=== PATIENT | female | born 1970 | race Caucasian/White ===

== ENCOUNTER 2018-10-23 08:54 | Emergency (ER) | payer BC, OTHER ==
[~2018-10-23] VITALS: Ht 167.6 cm; Wt 102.1 kg
[2018-10-23] MEDS ORDERED: NS IV 1000 ML 1,000 ML IV STA ×2 (09:07→10:18)
[2018-10-23] MEDS ORDERED: ONDANSETRON 4 MG/2 ML (SDV) Z0FRAN IVP ONE (09:15)
--- NOTE | 2018-10-23 09:18 | ED Abdominal Pain ---
General Chief Complaint: Abdominal/GI Problems Stated Complaint: R SIDE ABD PAIN Source of Information: Patient Exam Limitations: No Limitations History of Present Illness Date Seen by Provider: Oct 23, 2018 Time Seen by Provider: 09:00 Initial Comments Here with right lower quadrant abdominal pain onset this morning. Noted that she had nausea, vomiting and diarrhea since Monday night (3 days ago). She has not been unable to eat or drink well at all during that time. She was unable to tolerate water crackers this morning. Seen by her primary care doctor who sent her here for further evaluation. Denies current fevers. Previous hysterectomy and oophorectomy. Timing/Duration: 2-3 Days Severity/Quality: Moderate, Aching, Cramping Location: RLQ Radiation: Back Activities at Onset: None Modifying Factors: Worsens With Eating; Improves With Resting Associated Symptoms: Back Pain; No Chest Pain, No Fever/Chills; Nausea/Vomiting ; No Shortness of Air, No Weakness Allergies and Home Medications Allergies Coded Allergies: No Known Drug Allergies (Unverified , 10/23/18) Home Medications No Active Prescriptions or Reported Meds Patient Home Medication List Home Medication List Reviewed: Yes Review of Systems Review of Systems Constitutional: see HPI; No chills, No fever EENTM: No Symptoms Reported Respiratory: No Symptoms Reported Cardiovascular: No Symptoms Reported Gastrointestinal: Abdominal Pain, Diarrhea, Nausea, Vomiting Genitourinary: Other (decreased output) Musculoskeletal: no symptoms reported Skin: no symptoms reported All Other Systems Reviewed Negative Unless Noted: Yes Past Jyxhjyu-Jttydv-Aqtren Hx Past Med/Social Hx: Reviewed Nursing Past Med/Soc Hx Patient Social History Alcohol Use: Denies Use Recreational Drug Use: No Smoking Status: Never a Smoker Past Medical History Surgeries: Yes Gallbladder, Hysterectomy Respiratory: No Cardiac: No Neurological: No : No Genitourinary: No Gastrointestinal: No Musculoskeletal: No Endocrine: No Family Medical History Reviewed Nursing Family Hx No Pertinent Family Hx Physical Exam Vital Signs Vital Signs - First Documented 10/23/18 08:54 Temp 97.9 Pulse 102 Resp 16 B/P (MAP) 121/85 (97) Pulse Ox 99 O2 Delivery Room Air Capillary Refill : Height/Weight/BMI Height: '" Weight: lbs. oz. kg; BMI Method: General Appearance: WD/WN, no apparent distress HEENT: PERRL/EOMI, pharynx normal Neck: full range of motion, supple Respiratory: lungs clear, normal breath sounds Cardiovascular: no murmur, tachycardia Peripheral Pulses: 2+ Dorsalis Pedis (R), 2+ Left Dors-Pedis (L), 2+ Radial Pulses (R), 2+ Radial Pulses (L) Gastrointestinal: non tender, soft Extremities: non-tender, normal inspection Back: normal inspection, no CVA tenderness, no vertebral tenderness Neurologic/Psychiatric: no motor/sensory deficits, alert Skin: normal color, warm/dry Progress/Results/Core Measures Results/Orders Lab Results Laboratory Tests Test 10/23/18 09:15 10/23/18 11:28 Range/Units White Blood Count 7.0 4.3-11.0 10^3/uL Red Blood Count 5.62 4.35-5.85 10^6/uL Hemoglobin 16.6 H 11.5-16.0 G/DL Hematocrit 47 35-52 % Mean Corpuscular Volume 84 80-99 FL Mean Corpuscular Hemoglobin 30 25-34 PG Mean Corpuscular Hemoglobin Concent 35 32-36 G/DL Red Cell Distribution Width 13.7 10.0-14.5 % Platelet Count 362 130-400 10^3/uL Mean Platelet Volume 9.0 7.4-10.4 FL Neutrophils (%) (Auto) 64 42-75 % Lymphocytes (%) (Auto) 21 12-44 % Monocytes (%) (Auto) 14 H 0-12 % Eosinophils (%) (Auto) 0 0-10 % Basophils (%) (Auto) 0 0-10 % Neutrophils # (Auto) 4.5 1.8-7.8 X 10^3 Lymphocytes # (Auto) 1.5 1.0-4.0 X 10^3 Monocytes # (Auto) 1.0 0.0-1.0 X 10^3 Eosinophils # (Auto) 0.0 0.0-0.3 10^3/uL Basophils # (Auto) 0.0 0.0-0.1 10^3/uL Sodium Level 139 135-145 MMOL/L Potassium Level 3.3 L 3.6-5.0 MMOL/L Chloride Level 104 98-107 MMOL/L Carbon Dioxide Level 16 L 21-32 MMOL/L Anion Gap 19 H 5-14 MMOL/L Blood Urea Nitrogen 28 H 7-18 MG/DL Creatinine 1.38 H 0.60-1.30 MG/DL Estimat Glomerular Filtration Rate 41 BUN/Creatinine Ratio 20 Glucose Level 102 70-105 MG/DL Calcium Level 9.8 8.5-10.1 MG/DL Corrected Calcium 8.5-10.1 MG/DL Total Bilirubin 0.6 0.1-1.0 MG/DL Aspartate Amino Transf (AST/SGOT) 33 5-34 U/L Alanine Aminotransferase (ALT/SGPT) 42 0-55 U/L Alkaline Phosphatase 115 40-136 U/L C-Reactive Protein High Sensitivity 1.79 H 0.00-0.50 MG/DL Total Protein 7.9 6.4-8.2 GM/DL Albumin 5.1 H 3.2-4.5 GM/DL Urine Color YELLOW Urine Clarity CLEAR Urine pH 5 5-9 Urine Specific [place] 1.020 1.016-1.022 Urine Protein 2+ H NEGATIVE Urine Glucose (UA) NEGATIVE NEGATIVE Urine Ketones 4+ H NEGATIVE Urine Nitrite NEGATIVE NEGATIVE Urine Bilirubin NEGATIVE NEGATIVE Urine Urobilinogen NORMAL NORMAL MG/DL Urine Leukocyte Esterase 1+ H NEGATIVE Urine RBC (Auto) 1+ H NEGATIVE Urine RBC 0-2 /HPF Urine WBC 5-10 H /HPF Urine Squamous Epithelial Cells 25-50 H /HPF Urine Crystals NONE /LPF Urine Bacteria FEW H /HPF Urine Casts PRESENT /LPF Urine Hyaline Casts 2-5 H /LPF Urine Granular Casts RARE /LPF Urine Mucus NEGATIVE /LPF Urine Culture Indicated YES My Orders Orders - SANDRA BOOTHE MD Cbc With Automated Diff (10/23/18 09:07) Comprehensive Metabolic Panel (10/23/18 09:07) Hs C Reactive Protein (10/23/18 09:07) Ua Culture If Indicated (10/23/18 09:07) Ondansetron Injection (Zofran Injectio (10/23/18 09:15) Ns Iv 1000 Ml (Sodium Chloride 0.9%) (10/23/18 09:07) Saline Lock/Iv-Start (10/23/18 09:07) Ns Iv 1000 Ml (Sodium Chloride 0.9%) (10/23/18 10:18) Urine Culture (10/23/18 11:28) Ct Abd/Pelv W (Appendicitis) (10/23/18 12:05) Iohexol Injection (Omnipaque 350 Mg/Ml 1 (10/23/18 12:15) Contrast Received (Contrast Received) (10/23/18 12:15) Sodium Chloride Flush (Catheter Flush Sy (10/23/18 12:15) Ns (Ivpb) (Sodium Chloride 0.9% Ivpb Bag (10/23/18 12:15) Medications Given in ED Current Medications Medications Dose Ordered Sig/Vincenzo Route Start Time Stop Time Status Last Admin Dose Admin Iohexol 100 ml ONCE ONCE IV 10/23/18 12:15 10/23/18 12:16 DC 10/23/18 12:30 60 ML Ondansetron HCl 4 mg ONCE ONCE IVP 10/23/18 09:15 10/23/18 09:16 DC 10/23/18 09:28 4 MG Sodium Chloride 10 ml NEEDED PRN IV 10/23/18 12:15 10/23/18 12:31 10 ML Sodium Chloride 100 ml ONCE ONCE IV 10/23/18 12:15 10/23/18 12:16 DC 10/23/18 12:30 80 ML Vital Signs/I&O 10/23/18 08:54 Temp 97.9 Pulse 102 Resp 16 B/P (MAP) 121/85 (97) Pulse Ox 99 O2 Delivery Room Air Progress Progress Note : Progress Note Seen and evaluated. IV, labs, UA, normal saline 1 L bolus and Zofran 4 mg IV. Patient declined pain medicine. Monitor patient. Repeat normal saline 1 L boluses patient is unable to urinate. Monitor patient. 1200: UA obtained. We will get CT abdomen pelvis to rule out appendicitis as she has right lower quadrant pain and no indication of kidney stone currently. 1320: CT does not show appendicitis but does show multiple fluid-filled loops of small bowel. Likely enteritis. UA shows contamination and cultures are pending. We will hold further antibiotics pending cultures as this is this likely contamination. By mouth challenge done and past. Discharged home with return precautions. Patient verbalize understanding instructions and agreement with plan. Diagnostic Imaging Diagonstic Imaging: CT Plain Films/CT/US/NM/MRI: abdomen, pelvis Comments NAME: KRISTIN CALZADA [facility] REC#: [id number] PT STATUS: REG ER : 1970 PHYSICIAN: SANDRA BOOTHE MD ADMIT DATE: 10/23/18/ER Signed Date of Exam: 10/23/18 CT ABD/PELV W (APPENDICITIS) PROCEDURE: CT abdomen and pelvis with contrast, rule out appendicitis. TECHNIQUE: Multiple contiguous axial images were obtained through the abdomen and pelvis after the administration of intravenous contrast. INDICATION: Right lower quadrant pain. COMPARISON: None available. FINDINGS: Lower chest: The lung bases are clear. No pericardial or pleural effusion. Peritoneum: No free intraperitoneal air or fluid. Liver and biliary system: Diffuse hypoattenuation liver is indicative of hepatic steatosis. No focal hepatic lesion. Cholecystectomy. No pathologic biliary duct dilatation. Spleen and Pancreas: Spleen is normal. The pancreas enhances normally without mass lesion or peripancreatic inflammatory changes. Adrenals: Normal. tract: The kidneys enhance normally without suspicious mass or obstruction. Urinary bladder is distended without wall thickening. Hysterectomy. No adnexal mass. GI tract: Stomach is decompressed. No bowel obstruction. No pericolonic inflammatory changes. Small bowel loops and colon are fluid-filled. The appendix is normal. Vasculature and Lymph nodes: Normal caliber aorta. No abdominal or pelvic lymphadenopathy. Musculoskeletal: No concerning osseous lesion. IMPRESSION: 1. Fluid-filled small bowel loops and colon are nondilated and can be seen with enteritis. 2. Normal appendix. 3. Diffuse hepatic steatosis. 4. Cholecystectomy and hysterectomy. Dictated by: Dictated on workstation # [id number] Dict: 10/23/18 1250 Trans: 10/23/18 1258 Interpreted by: AMOL PALACIOS MD Electronically signed by: AMOL PALACIOS MD 10/23/18 1258 Departure Impression Primary Impression: Right lower quadrant abdominal pain Additional Impressions: Nausea and vomiting Qualified Codes: R11.2 - Nausea with vomiting, unspecified Diarrhea Qualified Codes: R19.7 - Diarrhea, unspecified Disposition: 01 HOME, SELF-CARE Condition: Stable Departure-Patient Inst. Decision time for Depature: 13:24 Referrals: JUAN J WADE DO Patient Instructions: Acute Abdomen (Belly Pain), Adult (DC), Diarrhea in Adolescents and Adults, Nausea and Vomiting, Adult (DC) Add. Discharge Instructions: All discharge instructions reviewed with patient and/or family. Voiced understanding. Clear liquid diet for the next 24 hours and then advance as tolerated. If you do eat any food make sure it is very light. Avoid meats, she is or milk. You may use Tylenol/acetaminophen 1000 mg every 8 hours as needed for pain. You may use ibuprofen 600 mg every 8 hours as needed for pain if the acetaminophen is not working. Follow-up with your DrSabina in a few days for recheck. He may also follow up with surgeon listed are of your choice for further evaluation as needed to include endoscopy (scope) if indicated. Scripts Ondansetron (Ondansetron Odt) 4 Mg Tab.rapdis 4 MG PO Q6H PRN for NAUSEA/VOMITING, #8 TAB 0 Refills Prov: SANDRA BOOTHE MD 10/23/18 SANDRA BOOTHE MD Oct 23, 2018 09:18
[2018-10-23 09:27] LABS: BASOPHILS % (AUTO) 0 % (0-10); EOSINOPHILS % (AUTO) 0 % (0-10); HEMATOCRIT 47 % (35-52); HEMOGLOBIN 16.6 G/DL (11.5-16.0); LYMPHOCYTES # (AUTO) 1.5 X 10^3 (1.0-4.0); LYMPHOCYTES % (AUTO) 21 % (12-44); MEAN CORPUSCULAR HEMOGLOBIN 30 PG (25-34); MEAN CORPUSCULAR HGB CONC 35 G/DL (32-36); MEAN CORPUSCULAR VOLUME 84 FL (80-99); MONOCYTES % (AUTO) 14 % (0-12); NEUTROPHILS # (AUTO) 4.5 X 10^3 (1.8-7.8); NEUTROPHILS % (AUTO) 64 % (42-75); PLATELET COUNT 362 10^3/uL (130-400); RED CELL DISTRIBUTION WIDTH 13.7 % (10.0-14.5)
[2018-10-23 09:52] LABS: ALANINE AMINOTRANSFERASE 42 U/L (0-55); ALBUMIN 5.1 GM/DL (3.2-4.5); ALKALINE PHOSPHATASE 115 U/L (40-136); BILIRUBIN,TOTAL 0.6 MG/DL (0.1-1.0); BUN/CREATININE RATIO 20; CALCIUM 9.8 MG/DL (8.5-10.1); CARBON DIOXIDE 16 MMOL/L (21-32); CHLORIDE 104 MMOL/L (98-107); CREATININE SERUM 1.38 MG/DL (0.60-1.30); GFR ESTIMATED 41; GLUCOSE 102 MG/DL (70-105); POTASSIUM 3.3 MMOL/L (3.6-5.0); SODIUM 139 MMOL/L (135-145); TOTAL PROTEIN 7.9 GM/DL (6.4-8.2)
--- NOTE | 2018-10-23 10:12 | NUR ---
PT HAS TRIED TO PEE ET UNABLE AT THIS TIME.
--- NOTE | 2018-10-23 11:00 | NUR ---
REPORT AND CARE HANDED OVER TO ANG TITUS.
--- NOTE | 2018-10-23 11:03 | NUR ---
pt laying in bed with no complaints. at bedside. Introduced self to patient. Taking over patient care from [facility]. Got pt a warm blanket.
[2018-10-23 11:39] LABS: BILIRUBIN,URINE NEGATIVE (NEGATIVE); CLARITY,URINE CLEAR; COLOR,URINE YELLOW; GLUCOSE, URINE (UA) NEGATIVE (NEGATIVE); KETONES,URINE 4+ (NEGATIVE); LEUKOCYTE ESTERASE ,URINE 1+ (NEGATIVE); NITRITE,URINE NEGATIVE (NEGATIVE); PH,URINE 5 (5-9); PROTEIN,URINE 2+ (NEGATIVE); UROBILINOGEN,URINE NORMAL (NORMAL)
[2018-10-23 11:49] LABS: BACTERIA,URINE FEW /HPF; RBC,URINE 0-2 /HPF
[2018-10-23 11:50] LABS: GRANULAR CASTS,URINE RARE /LPF; SQUAMOUS EPITHELIAL CELL,UR 25-50 /HPF
[2018-10-23] MEDS ORDERED: IOHEXOL 350 MG/ML 100 ML (OMNIPAQUE 350) VIAL IV ONE (12:15)
[2018-10-23] MEDS ORDERED: RECEIVED CONTRAST (Hold Metformin) IV SCH (12:15)
[2018-10-23] MEDS ORDERED: CATHETER FLUSH 10 ML SYR IV PRN (12:15)
[2018-10-23] MEDS ORDERED: NS 100 ML (IVPB) BAG IV ONE (12:15)
--- NOTE | 2018-10-23 12:56 | Diagnostic Imaging Report ---
PROCEDURE: CT abdomen and pelvis with contrast, rule out appendicitis. TECHNIQUE: Multiple contiguous axial images were obtained through the abdomen and pelvis after the administration of intravenous contrast. INDICATION: Right lower quadrant pain. COMPARISON: None available. FINDINGS: Lower chest: The lung bases are clear. No pericardial or pleural effusion. Peritoneum: No free intraperitoneal air or fluid. Liver and biliary system: Diffuse hypoattenuation liver is indicative of hepatic steatosis. No focal hepatic lesion. Cholecystectomy. No pathologic biliary duct dilatation. Spleen and Pancreas: Spleen is normal. The pancreas enhances normally without mass lesion or peripancreatic inflammatory changes. Adrenals: Normal. tract: The kidneys enhance normally without suspicious mass or obstruction. Urinary bladder is distended without wall thickening. Hysterectomy. No adnexal mass. GI tract: Stomach is decompressed. No bowel obstruction. No pericolonic inflammatory changes. Small bowel loops and colon are fluid-filled. The appendix is normal. Vasculature and Lymph nodes: Normal caliber aorta. No abdominal or pelvic lymphadenopathy. Musculoskeletal: No concerning osseous lesion. IMPRESSION: 1. Fluid-filled small bowel loops and colon are nondilated and can be seen with enteritis. 2. Normal appendix. 3. Diffuse hepatic steatosis. 4. Cholecystectomy and hysterectomy. Dictated by: Dictated on workstation # [id number]
--- NOTE | 2018-10-23 13:11 | NUR ---
PO fluif challenge at this time per
[2018-10-23] MEDS ORDERED: ONDA4TAB11 PO (13:22)
[2018-10-23 13:42] VITALS: BP 118/64
== END 2018-10-23 13:40 | disposition home or self-care (01) ==
LOC: EDUNIT# 08:54 → ER 08:55
DX: R10.31 Right lower quadrant pain (principal); R11.2 Nausea with vomiting, unspecified; R19.7 Diarrhea, unspecified; Z90.710 Acquired absence of both cervix and uterus
CPT/HCPCS: 36415; 74177; 80053; 81000; 85025; 86141; 87088

== ENCOUNTER → 2019-03-20 | Outpatient (CLI) | payer BC ==
[~2019-03-20] MED LIST: ONDA4TAB11 PO
[2019-03-20 08:57] LABS: HEMATOCRIT 41 % (35-52); HEMOGLOBIN 13.6 G/DL (11.5-16.0); MEAN CORPUSCULAR HEMOGLOBIN 30 PG (25-34); MEAN CORPUSCULAR HGB CONC 33 G/DL (32-36); MEAN CORPUSCULAR VOLUME 89 FL (80-99); WHITE BLOOD COUNT 4.8 10^3/uL (4.3-11.0)
[2019-03-20 08:58] LABS: BASOPHILS % (AUTO) 1 % (0-10); EOSINOPHILS # (AUTO) 0.2 10^3/uL (0.0-0.3); EOSINOPHILS % (AUTO) 4 % (0-10); LYMPHOCYTES # (AUTO) 1.8 X 10^3 (1.0-4.0); LYMPHOCYTES % (AUTO) 39 % (12-44); MEAN PLATELET VOLUME 9.3 FL (7.4-10.4); MONOCYTES # (AUTO) 0.3 X 10^3 (0.0-1.0); MONOCYTES % (AUTO) 6 % (0-12); NEUTROPHILS # (AUTO) 2.4 X 10^3 (1.8-7.8); NEUTROPHILS % (AUTO) 50 % (42-75); PLATELET COUNT 322 10^3/uL (130-400); RED CELL DISTRIBUTION WIDTH 12.8 % (10.0-14.5)
[2019-03-20 14:54] LABS: CHOLESTEROL 207 MG/DL (< 200); HDL CHOLESTEROL 48 MG/DL (40-60); TRIGLYCERIDES 90 MG/DL (<150); VLDL CHOLESTEROL 18 MG/DL (5-40)
== END ==
LOC: LAB FS 07:59
PROVIDERS: ATTEND Pediatrics
DX: Z00.00 Encounter for general adult medical examination without abnormal findings (principal)
CPT/HCPCS: 36415; 80061; 83036; 85025

== ENCOUNTER → 2020-10-13 | Outpatient (CLI) | payer BC ==
--- NOTE | 2020-10-14 10:42 | Diagnostic Imaging Report ---
INDICATION: Routine screening. COMPARISON: 09/04/2019. TECHNIQUE: 2D and 3D bilateral screening mammography was performed with CAD. FINDINGS: Both breasts are heterogeneously dense, limiting the sensitivity of mammography. The parenchymal pattern is stable. There are benign calcifications bilaterally. A benign nodule in the upper outer right breast is stable. No spiculated mass or malignant appearing microcalcifications are seen. The axillae are unremarkable. IMPRESSION: No mammographic features suspicious for malignancy are identified. ACR BI-RADS Category 2: Benign findings. Result letter will be mailed to the patient. Note: At least 10% of breast cancer is not imaged by mammography. Dictated by: Dictated on workstation # [id number]
== END ==
LOC: RAD 10:15
PROVIDERS: ATTEND Family Medicine
DX: Z12.31 Encounter for screening mammogram for malignant neoplasm of breast (principal)
CPT/HCPCS: 77063; 77067

== ENCOUNTER 2021-03-31 10:23 | Outpatient (CLI) | payer BC ==
[~2021-03-31] VITALS: Ht 67 cm; Wt 105.2 kg
[2021-03-31] MEDS ORDERED: SUCR1TAB36 PO (15:31)
[2021-03-31] MEDS ORDERED: PANT40SU PO (15:31)
== END 2021-03-31 16:31 | disposition home or self-care (01) ==
LOC: PREOP 10:23
PROVIDERS: ATTEND Surgery
DX: Z01.818 Encounter for other preprocedural examination (principal)

== ENCOUNTER 2021-04-07 11:02 | Day surgery (SDC) | payer BC ==
[2021-04-07] VITALS (14 sets, daily range): BP systolic 114–182; BP diastolic 54–97
[~2021-04-07 11:02] MED LIST changes: +PANT40SU PO; +SUCR1TAB36 PO
[2021-04-07] MEDS ORDERED: LACTATED RINGERS 1,000 ML IV STA (11:06)
[2021-04-07] MEDS ORDERED: fentaNYL INJ 100 MCG/2 ML AMP IVP ONE (11:15)
[2021-04-07] MEDS ORDERED: LIDOCAINE JELLY 2% 6 ML SYRINGE MM PRN (11:15)
[2021-04-07] MEDS ORDERED: MIDAZOLAM 5 MG/5 ML (VERSED) VIAL IV ONE (11:15)
--- NOTE | 2021-04-07 11:16 | Progress Note-Pre Operative ---
Pre-Operative Progress Note H&P Reviewed The H&P was reviewed, patient examined and no changes noted. Date Seen by Provider: Apr 07, 2021 Time Seen by Provider: 11:00 Date H&P Reviewed: Apr 07, 2021 Time H&P Reviewed: 11:00 Pre-Operative Diagnosis: screening VENTURA Katz MD Apr 07, 2021 11:16
--- NOTE | 2021-04-07 11:16 | Conscious Sedation/ASA ---
Conscious Sedation Pre-Proced Time 11:00 ASA Score 2 For ASA 3 and 4: Consider anesthesia and medical clearance. Also, for patients with a history of failed moderate sedation consider anesthesia. Airway Lungs Heart ASA score ASA 1: a normal healthy patient ASA 2: a patient with a mild systemic disease (mid diabetes, controlled hypertension, obesity ASA 3: a patient with a severe systemic disease that limits activity (angina, COPD, prior Myocardial infarction) ASA 4: a patient with an incapacitating disease that is a constant threat to life (CHF, renal failure) ASA 5: a moribund patient not expected to survive 24 hrs. (ruptured aneurysm) ASA 6: a declared brain- patient whose organs are being harvested. For emergent operations, add the letter E after the classification Mallampati Classification Grade 2 Sedation Plan Analgesia, Amnesia, Plan communicated to team members, Discussed options with patient/fam, Discussed risks with patient/fam The patient is an appropriate candidate to undergo the planned procedure, sedation, and anesthesia. The patient immediately re-assessed prior to indication. VENTURA DAN MD Apr 07, 2021 11:16
--- NOTE | 2021-04-07 11:18 | Discharge Inst-Surgical ---
D/C Lap Instructions-NI Follow Up Activity as tolerated High Fiber Diet 25g or more per day Avoid Alcohol, Caffeine, Spicy [place] and Acid foods. Drink 64 fluid oz or more of fluids per day. Symptoms to Report: Fever over 101 degree F, Nausea/Vomiting If any problems/questions: Contact your physician or go to Emergency Room VENTURA DAN MD Apr 07, 2021 11:18
[2021-04-07] MEDS ORDERED: ONDANSETRON 4 MG/2 ML (SDV) Z0FRAN IVP PRN (11:30)
[2021-04-07] MEDS ORDERED: morphine INJ 10 MG/ML 1ML (SYR OR VIAL) IVP PRN ×2 (11:30)
[2021-04-07] MEDS ORDERED: NS IV 500 ML 500 ML IV SCH (11:30)
[2021-04-07] MEDS ORDERED: ACETAMINOPHEN 325 MG TABLET PO PRN (11:30)
[2021-04-07] MEDS ORDERED: MIDAZOLAM 5 MG/5 ML (VERSED) VIAL ONE (12:23)
[2021-04-07] MEDS ORDERED: fentaNYL INJ 100 MCG/2 ML AMP ONE (12:23)
--- NOTE | 2021-04-07 12:41 | Progress Note-Post Operative ---
Post-Operative Progess Note Surgeon (s)/News Editor (s) Surgeon VENTURA DAN MD News Editor: none Pre-Operative Diagnosis screening colo Post-Operative Diagnosis mild chronic stage 2 ext and int hemorrhoids. Procedure & Operative Findings Date of Procedure 04/07/21 Procedure Performed/Findings colonoscopy Anesthesia Type cs Estimated Blood Loss Estimated blood loss (mL): minimal Specimens/Packing Specimens Removed none VENTURA DAN MD Apr 07, 2021 12:41
--- NOTE | 2021-04-07 15:29 | OPERATIVE REPORT ---
DATE OF SERVICE: 04/07/2021 ATTENDING PRIMARY CARE PHYSICIAN: Rhoda Corodva MD PREOPERATIVE DIAGNOSIS: Screening colonoscopy. POSTOPERATIVE DIAGNOSES: Mild chronic stage II external and internal hemorrhoids. PROCEDURE: EGD with colonoscopy. SURGEON: Ventura Dan MD. ANESTHESIA: Conscious sedation. ESTIMATED BLOOD LOSS: Minimal. FINDINGS: Mild chronic stage II external and internal hemorrhoids. DISPOSITION: The patient tolerated the procedure well. INDICATIONS: The patient is a 50-year-old female who was referred over to us for screening colonoscopy. She has had two in the past due to the fact that she has a sister that has had multiple polyps at a young age. She states for the most part she is doing well. She does report that on occasion she does have diarrhea after eating a meal. She does not report any red blood per rectum nor any dark tarry stools. She does not report any family history of colon cancer. DESCRIPTION OF PROCEDURE: The patient was brought to the endoscopy suite, laid in the left lateral decubitus position. After adequate IV pain and sedative medications and conscious sedation anesthesia, a digital rectal examination was performed. Mild chronic stage II external and internal hemorrhoids were identified, which were not actively edematous nor inflamed and no bleeding. Normal sphincter tone was felt and there were no palpable masses. The endoscope was then intubated into the anus and rectum gently insufflated. The endoscope was then advanced through the valves of [place] of the rectum with no polyps or any neoplasms identified. Through the sigmoid colon, no diverticulosis identified. The endoscope was then advanced to the remainder of the descending, transverse and ascending colon to the cecum. These segments were normal. No polyps or any neoplasms identified. The endoscope was then slowly withdrawn while taking a second look and suctioning of residual air with no additional findings. The patient tolerated the procedure well. We will recommend necessary medical management, which would encompass adding a fiber supplement, which should equal or exceed 25 grams daily to promote soft stools on a daily basis that are not hard and well formed; however, not diarrhea as well. She does not have any first-degree family history of colon cancer and so her risk is still considered low and she may wait 10 years for her next colonoscopy, especially if she is asymptomatic. Job ID: [id number] DocumentID: [id number] Dictated Date: 04/07/2021 12:36:04 Dewaterer Operator Date: 04/07/2021 15:28:39 Dictated By: VENTURA DAN MD
== END 2021-04-07 13:10 | disposition home or self-care (01) ==
LOC: ENDO 11:02
PROVIDERS: ATTEND Surgery
DX: Z12.11 Encounter for screening for malignant neoplasm of colon (principal); K64.4 Residual hemorrhoidal skin tags; K64.1 Second degree hemorrhoids; I63.9 Cerebral infarction, unspecified; Z90.710 Acquired absence of both cervix and uterus; Z90.49 Acquired absence of other specified parts of digestive tract; Z79.899 Other long term (current) drug therapy; Z83.71 Family history of colonic polyps

== ENCOUNTER → 2021-12-07 | Outpatient (CLI) | payer BC ==
--- NOTE | 2021-12-07 12:39 | Diagnostic Imaging Report ---
INDICATION: Routine screening. Comparison is made with prior mammogram from 10/13/2020 and 09/04/2019. 2-D and 3-D bilateral screening mammography was performed with CAD. Both breasts are heterogeneously dense, limiting the sensitivity of mammography. A benign nodule upper outer right breast is stable. There are scattered benign calcifications. No dominant mass or malignant-appearing microcalcifications are seen. Axillae are unremarkable. IMPRESSION: No mammographic features suspicious for malignancy are identified. ACR BI-RADS Category 2: Benign findings. Result letter will be mailed to the patient. Note: At least 10% of breast cancer is not imaged by mammography. BI-RADS Category 2 Dictated by: Dictated on workstation # [id number]
== END ==
LOC: RAD 10:15
PROVIDERS: ATTEND Nurse Practitioner Family
DX: Z12.31 Encounter for screening mammogram for malignant neoplasm of breast (principal)
CPT/HCPCS: 77063; 77067

== ENCOUNTER → 2023-01-17 | Outpatient (CLI) | payer MEDICARE, OTHER ==
--- NOTE | 2023-01-19 09:22 | Diagnostic Imaging Report ---
Indication: Routine screening. Comparison is made prior mammogram from 12/05/2021 and 10/13/2020. 2-D and 3-D bilateral screening mammography was performed with CAD. CAD is utilized. The current study was also evaluated with a Computer Aided Detection (CAD) system. Both breasts are heterogeneously dense, limiting the sensitivity of mammography. Benign-appearing nodules in the right breast appears stable. There are benign calcifications bilaterally. No spiculated mass or malignant-appearing microcalcifications are seen. Axillae are unremarkable. IMPRESSION: BI-RADS Category 2 No mammographic features suspicious for malignancy are identified. ACR BI-RADS Category 2: Benign findings. Result letter will be mailed to the patient. Note: At least 10% of breast cancer is not imaged by mammography. Dictated by: Dictated on workstation # [id number]
== END ==
LOC: RAD 12:33
PROVIDERS: ATTEND Nurse Practitioner Family
DX: Z12.31 Encounter for screening mammogram for malignant neoplasm of breast (principal)
CPT/HCPCS: 77063; 77067